=== PATIENT | female | born 1975 | race Caucasian/White ===

== ENCOUNTER 2021-09-11 08:13 | Emergency (ER) | payer OTHER, SELFPAY ==
[2021-09-11 08:21] VITALS: PULSE 75; O2SAT 94
[2021-09-11 08:22] VITALS: BP 136/81; PULSE 76; O2SAT 100
[2021-09-11 08:25] VITALS: BP 136/81; PULSE 75; RESP 18; TEMP 37; O2SAT 100; BMI 25.7
[2021-09-11 08:30] VITALS: BP 123/72; PULSE 71; O2SAT 99
--- NOTE | 2021-09-11 08:56 | ED_ITS ---
HPI - Back Pain/Injury General Chief Complaint: Back Pain/Injury Stated Complaint: hurt back/heard pop/cant sit Time Seen by Provider: 09/11/21 08:46 Source: patient Limitations: no limitations History of Present Illness HPI Narrative: This is a 45-year-old female comes with complaint of lower back pain patient states yesterday she was lifting a 50 lb grain sac into the back of her truck. Her grandson went to slide underneath it so she pulled it back up quickly and unexpectedly and had some pain on the right side of her back and felt a pop. Since then she has had continuing worsening of pain particularly with movement going from lying to sitting and sitting to standing. She is most uncomfortable laying. Patient has no numbness, tingling or radiation of pain down her legs. No loss of bowel or bladder control. She has not had chronic symptoms in the past. She states the pain sort of radiates just outside the spinal cord towards her right hip. She uses fluticasone but no other daily medications. She took ibuprofen her last dose was at 4:00 a.m. and has been minimally helpful. She denies allergies to medications besides sulfa but has had Valium and states that it drops her blood pressure very low and she gets sick. She has taken Flexeril in the past 20 mg and done well with this. She states she uses tobacco, she states she does drink alcohol, she denies illicit other than topical CBD which has not been helpful for her back. Related Data Home Medications Medication Instructions Recorded Confirmed fluticasone propionate 50 #0 04/06/17 mcg/actuation nasal spray,suspension (Flonase Allergy Relief) Previous Rx's Medication Instructions Recorded cyclobenzaprine 10 mg tablet 20 mg PO TID PRN #14 tab 09/11/21 meloxicam 7.5 mg tablet 7.5 mg PO DAILY PRN #14 tab 09/11/21 Allergies Allergy/AdvReac Type Severity Reaction Status Date / Time Sulfa (Sulfonamide Allergy Unknown Unverified 10/19/17 12:19 Antibiotics) [SULFA (SULFONAMIDE ANTIBIOTICS)] Review of Systems Review of Systems ROS Unobtainable: All systems reviewed & are unremarkable except as noted in HPI and below Patient History Social History Smoking Status: Never smoker Smoking Status: Never smoker Substance Use Type: does not use Exam Narrative Exam Narrative: GENERAL: Alert and oriented x three, female in mild distress. HEENT: Head normocephalic, atraumatic, EOMI, pupils reactive, face symmetric, moist mucous membranes NECK: Supple, full range of motion CARDIOVASCULAR: Regular rate and rhythm without murmurs, rubs or gallops. RESPIRATORY: Breath sounds equal bilaterally, no wheezes rales or rhonchi. ABDOMEN: Soft, nontender. Normoactive bowel sounds all 4 quadrants. No guarding or rebound, rigidity, no mass : No CVA tenderness BACK: No cervical, thoracic or lumbar vertebral point tenderness. Patient has tenderness at the no for paraspinal muscles and radiating with palpation towards the ASIS. There is some muscle tightness. There is no bruising or discoloration. There is no swelling, warmth or erythema. Patient does have increased pain with flexion at the hip. Has decreased range of motion. Patient's gait is [antalgic/normal]. Rectal exam is deferred. Muscle strength is 5/5 in lower extremities, no saddle anesthesia. Dorsalis pedis and tibialis pulses are 2+ and lower extremities. Sensation is intact in the lower extremities. EXTREMITIES: Normal range of motion, no clubbing or edema. Neurovascularly intact NEUROLOGICAL: Cranial nerves II through XII grossly intact. Moving all extremities SKIN: Warm, dry, no petechiae, no rashes or lesions. Initial Vital Signs Initial Vital Signs: Vital Signs Pulse Rate 75 09/11/21 08:21 Pulse Oximetry 94 09/11/21 08:21 Course Orders Ordered: Discontinued Medications Cyclobenzaprine HCl (Cyclobenzaprine 10 Mg Tablet) 20 mg PO NOW ONE Stop: 09/11/21 08:57 Last Admin: 09/11/21 09:25 Dose: 20 mg Documented by: BILLIE Ketorolac Tromethamine (Ketorolac 30 Mg/Ml Vial) 30 mg IM NOW ONE Stop: 09/11/21 08:57 Last Admin: 09/11/21 09:26 Dose: 30 mg Documented by: BILLIE Vital Signs Vital signs: Vital Signs - 8 hr 09/11/21 08:21 09/11/21 08:22 09/11/21 08:25 Temperature 98.6 F Pulse Rate 75 76 75 Respiratory Rate 18 Blood Pressure 136/81 136/81 Pulse Oximetry 94 100 100 09/11/21 08:30 Temperature Pulse Rate 71 Respiratory Rate Blood Pressure 123/72 Pulse Oximetry 99 MDM - Back Pain/Injury MDM Narrative Medical decision making narrative: This is a 45-year-old with low back pain after living 50 lb sac of grain and moving unexpectedly with it. She has pain on the right lower back radiating towards her ASIS. She has no red flag symptoms on her exam today or by HPI. Plan for pain control, muscle relaxers and follow up with primary care. Red flag symptoms discussed. He patient states she does not tolerate Valium and dr nathan her blood pressure very low but she is take Flexeril, 10 mg in the past with no change but 20 mg has been well tolerated. Discharge Plan Departure Patient Disposition: Home Clinical Impression: Low back strain Instructions: DI for Low Back Pain Activity Restrictions/Additional Instructions: Follow-up with your physician in the next week to 10 days if your symptoms are not significantly improving. You may take meloxicam 1 tablet twice daily as needed for pain. Do not take this medication with ibuprofen or other NSAIDs. You can take Tylenol up to a 1000 mg every 8 hours with this medication. Take muscle relaxer 2 tablets every 8 hours as needed. Prescription sent to [facility] in [place]. Please return for rapidly worsening pain, fevers, loss of bowel or bladder control, new weakness, loss of sensation or inability to move your foot or lower extremity or other new or concerning symptoms. Prescriptions: New cyclobenzaprine 10 mg tablet 20 mg PO TID PRN (Reason: muscle spasm) Qty: 14 0RF meloxicam 7.5 mg tablet 7.5 mg PO DAILY PRN (Reason: pain) Qty: 14 0RF No Action fluticasone propionate [Flonase Allergy Relief] 9.9 ML spray,suspension Qty: 0 0RF Referrals: Abdon Alvarenga PA-C [Primary Care Provider] - Stand Alone Forms: Work Release Note
[2021-09-11 09:00] VITALS: BP 115/71; PULSE 64; RESP 18; O2SAT 99
[2021-09-11] MEDS: CYCLOBENZAPRINE 10 MG TABLET 20 MG PO (09:25)
[2021-09-11] MEDS: KETOROLAC 30 MG/ML VIAL IM (09:26)
[2021-09-11 09:32] VITALS: BP 115/70; PULSE 80; RESP 18; O2SAT 98
== END 2021-09-11 09:32 | disposition home or self-care (01) ==
PROVIDERS: Emergency Provider Emergency Medicine; PCP Physician Assistant
DX: S39.012A Strain of muscle, fascia and tendon of lower back, initial encounter (principal); X50.0XXA Overexertion from strenuous movement or load, initial encounter
CPT/HCPCS: 96372; 99283; J1885